=== PATIENT | female | born 1960 | race African-American/Black ===

== ENCOUNTER → 2016-11-17 | Outpatient (CLI) | payer BC ==
[~2016-11-17] VITALS: Ht 167.6 cm; Wt 143.0 kg
[~2016-11-17] MED LIST: CHLORHEXIDINE GLUCONATE 2 % 1 PACK (2 CLOTHS) TOPICAL PRN; DO NOT ADM ANY ANTICOAGULANT DRUGS PRN; ENALAPRILAT 1.25 MG/ML VIAL IV PUSH ONE; FLUMAZENIL 0.5 MG/5 ML VIAL IV PRN; INSULIN HUMAN REGULAR 1,000 UNITS/10 ML VIAL SQ PRN; LACTATED RINGER'S 1000 ML IV PRN; LOSA100T2 PO; LOVA20TA PO; METOPROLOL TARTRATE 25 MG TAB PO PRN; MOBI15TA PO; NALOXONE HCL 0.4 MG/ML AMP IV PRN; ONDANSETRON HCL 4 MG/2 ML VIAL IV PUSH ONE; POVIDONE IODINE 5% (ANTISEPSIS KIT) 4 APPLICATIONS EACH NARE PRN; PROPOFOL 200 MG/20 ML AMP IV ONE; SODIUM CHLORID 0.9% 500 ML IV PRN; hydrALAZINE HCL 20 MG/ML VIAL IV PUSH ONE; hydrALAZINE HCL 20 MG/ML VIAL ONE
[2016-11-17 09:10] VITALS: BP 164/84; PULSE 62; RESP 18; TEMP 98.5; O2SAT 97
--- NOTE | 2016-11-17 10:34 | GIPROC ---
[facility] [address] [facility]. [facility], [address] EGD PROCEDURE REPORT EXAM DATE: 11/17/2016 PATIENT NAME: Naila Starkey MR #: [id number] BIRTHDATE: 1960 ATTENDING: Bob Holguin MD ORDER #: [id number] VETERINARY VIRUS SERUM INSPECTOR: Oleg Nichols and Dionna Garcia STATUS: outpatient INDICATIONS: The patient is a 56 yr old female here for an EGD due to Preoperative assessment PROCEDURE PERFORMED: EGD w/ biopsy MEDICATIONS: None and Per Anesthesia. TOPICAL ANESTHETIC: none CONSENT: The patient understands the risks and benefits of the procedure and understands that these risks include, but are not limited to: sedation, allergic reaction, infection, perforation and/or bleeding. Alternative means of evaluation and treatment include, among others: physical exam, x-rays, and/or surgical intervention. The patient elects to proceed with this endoscopic procedure. medical equipment was checked for proper function. Hand hygiene and appropriate measures for infection prevention was taken. After the risks, benefits and alternatives of the procedure were thoroughly explained, Informed consent was verified, confirmed and timeout was successfully executed by the treatment team. The patient was anesthetized with topical anesthesia and the BuyHappyax [id number] endoscope was introduced through the mouth and advanced to the second portion of the duodenum. Mild duodenitis noted. Biopsy of antrum for h. pylori. Retroflexed views revealed no abnormalities The gastroscope was then slowly withdrawn and removed. DUODENUM: Mild duodenal inflammation was found. ADVERSE EVENTS: There were no complications. IMPRESSIONS: 1. Duodenal inflammation was found 2. Retroflexed views revealed no abnormalities RECOMMENDATIONS: Await biopsy results. Biopsy results will not be ready for 7-10 days. If you don't hear from us in two weeks, call our office for biopsy results. PATIENT CONDITION: fair DISPOSITION: Home REPEAT EXAM: NONE Bob Holguin MD eSigned: Bob Holguin MD 11/17/2016 10:34 AM cc:
--- NOTE | 2016-11-17 11:02 | EKG ---
Date Performed: 11/17/2016 Time Performed: 08:44:31 PTAGE: 56 years EKG: SINUS BRADYCARDIA POSSIBLE LEFT VENTRICULAR HYPERTROPHY AND ST-T CHANGE POSSIBLE SEPTAL BEL CARDIAL INFARCTION , OF INDETERMINATE AGE ABNORMAL ECG NO PREVIOUS TRACING DOCTOR: Johann Harrison Interpretating Date/Time 11/17/2016 11:01:57
[2016-11-17 11:25] VITALS: RESP 16; TEMP 97.8; O2SAT 94
[2016-11-17 13:35] VITALS: PULSE 65
[2016-11-17 15:50] VITALS: BP 189/97
== END ==
LOC: HEND 07:53
PROVIDERS: ATTEND Surgery
DX: K29.80 Duodenitis without bleeding (principal); R94.31 Abnormal electrocardiogram [ECG] [EKG]; E66.01 Morbid (severe) obesity due to excess calories
CPT/HCPCS: 00740; 43239; 88305; 88312; 93005; J0360; J2405

== ENCOUNTER 2017-10-18 05:46 | Inpatient (IN) ==
[2017-10-18] MEDS ORDERED: ceFAZolin 2 GM IV; once IV.SIG PRN (06:06)
[2017-10-18] MEDS ORDERED: SCOPALAMINE PATCH TOPICAL PRN (06:14)
[2017-10-18] MEDS ORDERED: Chlorhexidine Gluconate 2% 1 Pack (2 Cloths) TOPICAL SCH (06:15)
[2017-10-18] MEDS ORDERED: Metoprolol Tartrate 25 MG Tablet PO SCH (06:15)
[2017-10-18] MEDS ORDERED: Dexamethasone Inj 20 MG/5 ML Vial ONE (06:18)
[2017-10-18] MEDS ORDERED: Propofol Inj 500 MG/50 ML Vial ONE ×2 (06:18→07:59)
[2017-10-18] MEDS ORDERED: Dexmedetomidine Inj 200 MCG/2 ML Vial ONE ×2 (06:18→07:59)
[2017-10-18] MEDS ORDERED: Sugammadex Inj 200 MG/2 ML Vial IV.PUSH ONE ×2 (06:20→06:55)
[2017-10-18] MEDS ORDERED: Ketamine Inj 50 MG/5 ML Syringe IV.PUSH ONE (06:22)
[2017-10-18] MEDS ORDERED: Sodium Chlor 0.9% Inj 500 ML IV.SIG SCH (07:00)
[2017-10-18] MEDS: Bupivacaine/Epinephrine 0.5% Inj 50 ML Vial ONE ×2 (08:11→12:42)
[2017-10-18] MEDS ORDERED: diphenhydrAMINE HCl 12.5 MG/5 ML Elixir UDC PO PRN (09:46)
[2017-10-18] MEDS ORDERED: Post-op Orders (for Pharmacy) OTHER STA (09:46)
--- NOTE | 2017-10-18 09:46 | P.OP ---
- Preoperative Diagnosis (1) Morbid obesity (2) Morbid obesity with BMI of 50.0-59.9, adult - Postoperative Diagnosis (1) Morbid obesity with BMI of 50.0-59.9, adult Date of procedure: 10/18/17 Procedure: lap sleeve gastrectomy Anesthesia: GETA Surgeon: Bob Holguin MD Parachute Supervisor: Santos Wells Estimated blood loss (mL): 5 Pathology: none sent Operation and Findings: no leak
[2017-10-18] MEDS ORDERED: *Meperidine Inj 25 MG/ML Vial PERIprocedural Use ONLY ONE (09:51)
[2017-10-18] MEDS ORDERED: fentaNYL Citrate Inj 100 MCG/2 ML Ampul ONE (09:56)
[2017-10-18] MEDS ORDERED: *morphine SULFATE 4 MG/ML PERIprocedure ONLY ONE (09:59)
[2017-10-18] MEDS ORDERED: KCL 20 mEq/D5W/NaCl 0.45% Inj 1,000 ML ONE (10:00)
[2017-10-18] MEDS ORDERED: *morphine SULFATE 10 MG/ML PERIprocedure ONLY ONE (11:19)
[2017-10-18] MEDS: KCL 20 mEq/D5W/NaCl 0.45% Inj 1,000 ML IV.CONT SCH ×2 (12:16→17:30)
[2017-10-18] MEDS ORDERED: Succinylcholine Inj 200 MG/10 ML Vial IV.PUSH ONE (16:11)
[2017-10-18] MEDS ORDERED: Lidocaine PF 1% Inj 5 ML Syringe INFILTRATN ONE (16:11)
[2017-10-18] MEDS ORDERED: Ketorolac Inj 30 MG/ML (IVP) Vial IV.PUSH ONE (16:11)
[2017-10-18] MEDS ORDERED: hydrALAZINE HCl Inj 20 MG/ML Vial IV.PUSH ONE (16:11)
[2017-10-18] MEDS: Acetaminophen-HYDROcodone 325/7.5 Liq 15 ML UDC PO PRN (16:40)
[2017-10-18] MEDS: Enoxaparin Inj 40 MG/0.4 ML Syringe SQ SCH (16:43)
--- NOTE | 2017-10-18 19:53 | MP ---
cc: Bob Holguin MD DATE OF OPERATION: 10/18/2017 PREOPERATIVE DIAGNOSES: 1. Morbid obesity, body mass index of 54. 2. Hypertension. 3. Obstructive sleep apnea. 4. Rheumatoid arthritis. 5. Hypercholesterolemia. POSTOPERATIVE DIAGNOSES: 1. Morbid obesity, body mass index of 54. 2. Hypertension. 3. Obstructive sleep apnea. 4. Rheumatoid arthritis. 5. Hypercholesterolemia. PROCEDURE PERFORMED: Laparoscopic sleeve gastrectomy over a 36 ViSiGi bougie. SURGEON: Bob Holguin MD LEARNING SPECIALIST: Santos Reardon MD ANESTHESIA: GETA. IV FLUIDS: See anesthesia sheet. ESTIMATED BLOOD LOSS: 5 mL DRAINS: None: COMPLICATIONS: None. WOUND CLASSIFICATION: Clean/contaminated. SPECIMENS: None. INDICATIONS FOR PROCEDURE: The patient is a 57-year-old female who presents with morbid obesity, BMI 54. The patient with multiple attempts at weight loss without success. Multiple comorbidities. Decision was made for operative intervention, including sleeve gastrectomy. The patient with history of arthritis with routine Mobic usage and history of smoking, recently quit. DETAILS OF PROCEDURE: The patient was taken to the operating suite, placed in the supine position. She was prepped and draped in the usual sterile fashion after induction of general endotracheal anesthesia. Brief timeout was done, stating correct patient, procedure, surgical site. We were all in agreement with this. Attention was first directed to the xiphoid 15 cm distal on the midline; local anesthetic injected. A stab vicki incision was made with an 11 blade. A ViSiGi OptiPort 5 mm view was entered into the abdomen safely. Abdomen insufflated to 15 mmHg pneumoperitoneum. On cursory inspection, no evidence of injury. Several other ports were placed, including a 5 mm left upper quadrant port, followed by a 5 mm left lower quadrant port, a 15 mm right lower quadrant port, and a 5 mm right upper quadrant port. The patient placed in reverse Trendelenburg, airplaned to the right. Radha-Flex retractor was placed and secured with the robot arm. The left lobe of the liver was retracted. The vasculature along the greater curvature of stomach was using Harmonic scalpel for a distance of 5 cm proximal to pylorus and carried down toward the angle of His. The angle of His was taken out bluntly. Posterior ligamentous attachments were also sharply . A 36 ViSiGi bougie was placed to suction. Division of the stomach was done over the MyDream InteractiveiGi for calibration device. This was done 5 cm proximal to the pylorus and carried all the way to the angle of His to remove approximately 80% of the stomach. This was performed using an Endo ANNY stapler, initial firings of black load, followed by green load, followed by gold load. Stapler roots were reinforced with SeamGuard. This was done a distance of 2 cm left at the angle of incisura and staple line and a distance 1 cm from the GE junction staple line. The pylorus then was observed and the staple line observed for instillation of methylene blue 60 mL x2, given via anesthesia with the ViSiGi bougie. No evidence of extravasation of fluid. Next, Evicel was placed after the anterior leaflets were sutured using interrupted 2-0 Vicryl suture x2. Hemostasis was achieved. The stomach was removed from the peritoneal cavity through the 15 mm ports. The fascia was closed over the 15 mm port site with a [id number] 0 Vicryl. Pneumoperitoneum was removed. All ports were removed. The skin incision was closed with 4-0 Monocryl subcuticular sutures, followed by sterile dressing, Mastisol, and Steri-Strips. The patient tolerated the procedure well. There were no intraoperative complications. All lap and instrument counts were correct at the end of procedure. The patient was extubated and taken stable to PACU. MD GERALD Hernandez/angel/sesar , 03:07 PM , 03:19 PM
[2017-10-18] MEDS ORDERED: Morphine Inj 30 MG/30 ML PCA.VIAL PCA PRN (22:44)
[2017-10-18] MEDS ORDERED: Naloxone Inj 0.4 MG/ML Vial IV.PUSH PRN (22:44)
[2017-10-19] MEDS: KCL 20 mEq/D5W/NaCl 0.45% Inj 1,000 ML IV.CONT SCH ×3 (05:17→21:48)
[2017-10-19 07:17] LABS: Baso % (Auto) 0.2 % (0.0-2.0); Hematocrit 40.4 % (35.0-46.0); Hemoglobin 13.2 gm/dL (11.6-15.3); Lymph # (Auto) 2.2 th/mm3 (1.0-4.8); Lymph % (Auto) 19.7 % (9.0-44.0); Mean Corpuscular HGB Conc 32.6 % (32.0-36.0); Mean Corpuscular Hemoglobin 28.1 pg (27.0-34.0); Mean Corpuscular Volume 86.4 fL (80.0-100.0); Mean Platelet Volume 9.8 fL (7.0-11.0); Mono # (Auto) 0.9 th/mm3 (0.0-0.9); Mono % (Auto) 8.3 % (0.0-8.0); Neut # (Auto) 8.1 th/mm3 (1.8-7.7); Neut % (Auto) 71.8 % (16.0-70.0); Platelet Count 188 th/mm3 (150-450); Red Blood Count 4.68 mil/mm3 (4.00-5.30); Red Cell Distribution Width 16.2 % (11.6-17.2); White Blood Count 11.2 th/mm3 (4.0-11.0)
[2017-10-19 07:43] LABS: Calcium 7.7 mg/dL (8.5-10.1); Carbon Dioxide 25.3 meq/L (21.0-32.0); Potassium 3.5 meq/L (3.5-5.1)
--- NOTE | 2017-10-19 11:31 | P.PNGS ---
Subjective Patient reports: feels better (HTN, improved, pain better, tolerating liquids 30cc) Physical Exam Vital signs: Vital Signs 10/18/17 12:00 10/18/17 12:36 10/18/17 16:00 Temperature 97.2 F L 97.5 F L Pulse Rate 65 72 70 Respiratory Rate 16 18 18 Blood Pressure 166/78 H 178/80 H 196/84 H Pulse Oximetry 96 92 L 95 10/18/17 22:00 10/18/17 23:20 10/19/17 00:00 Temperature 97.6 F 97.7 F Pulse Rate 58 L 74 Respiratory Rate 18 18 Blood Pressure 188/79 H 188/79 H Pulse Oximetry 95 96 96 10/19/17 00:21 10/19/17 01:54 10/19/17 05:32 Temperature 98.2 F Pulse Rate 60 63 Respiratory Rate 18 18 18 Blood Pressure 129/56 L 149/68 H Pulse Oximetry 98 10/19/17 08:00 Temperature 98.1 F Pulse Rate 63 Respiratory Rate 16 Blood Pressure Pulse Oximetry 94 L Intake & Output 10/18/17 10/19/17 10/19/17 18:59 06:59 18:59 Intake Total 3040 / 3040 2120 / 2120 100 / 100 Output Total 905 / 905 Balance 2135 / 2135 2120 / 2120 100 / 100 Weight 140.1 kg Intake: IV 2100 / 2100 1400 / 1400 100 / 100 D5W/1/2NS + KCL 20 mEq Inj 1, 1000 / 1000 1000 / 1000 000 ML @ 125 mls/hr IV.CONT . Q8H [facility] Rx#:[id number] Ofirmev Inj 1,000 mg In 100 ml 100 / 100 @ 400 mls/hr IV.SIG TRAINING ADMINISTRATOR PRN Rx#:[id number] LR 1000 mL Inj 1,000 ML @ 30 1000 / 1000 mls/hr IV.SIG .Q24H [facility] Rx#: [id number] Ancef Inj 1,000 MG In NS Inj 200 / 200 100 ML @ 200 mls/hr IV.SIG Q8H [facility] Rx#:[id number] Flagyl 500 MG Inj 100 ML @ 200 200 / 200 100 / 100 mls/hr IV.SIG Q8H [facility] Rx#: [id number] Oral 90 / 90 720 / 720 Anesthesia Amount 700 / 700 Other 150 / 150 Output: Urine 900 / 900 Estimated Blood Loss / Other: # Voids 2 4 - Routine Neck Exam Present: full ROM - Routine Respiratory Exam Present: CTA bilaterally - Routine Cardiovascular Exam Present: RRR, S1, S2 - Routine Abdominal Exam Present: soft (incisional tenderness) Assessment and Plan - Plan POD 1Lap vertical sleeve gastrectomy PLAN Increase to 60cc/30min transition to po meds dvt ppx oob ambulate d/c later if bp remains stable
[2017-10-19] MEDS: Enoxaparin Inj 40 MG/0.4 ML Syringe SQ SCH (14:43)
[2017-10-19] MEDS ORDERED: hydrALAZINE 25 MG Tablet PO ONE (17:18)
[2017-10-19] MEDS ORDERED: hydrALAZINE 25 MG Tablet PO PRN (17:19)
--- NOTE | 2017-10-19 17:20 | P.CON ---
History of Present Illness Service: [facility] Consult date: 10/19/17 Requesting Physician: Bob Holguin Reason for Consult: Elevated BP Primary Care Provider: Miller Falk Family Provider: Miller Falk Chief Complaint: Sleeve gastrec History of Present Illness: Patient is a 57-year-old female with primary medical history of morbid obesity, HTN, HLD who came in for an elective active lap sleeve gastrectomy by Dr. Bob Holguin. Postop patient has elevated BP. Hospitalist consulted for assistance in management. Patient seen and examined today. Reports she is doing well. States that pain is well controlled. States she had a history of high blood pressure and hyperlipidemia were and she takes medications at home which includes Norvasc, losartan, lovastatin. Patient states that she has not taken this medication today prior to surgical intervention. Complains of headache, mild nausea, no vomiting. Denies SOB/ dyspnea. Denies chest pain, palpitations , dizziness. Denies fevers, chills. Denies dysuria. Review of Systems All other systems reviewed negative except as stated in HPI PMFSH - History History Provided By: Patient - Medical History Medical History: Medical History (Last Updated 10/19/17 @ 17:13 by GUY Bolden) History of hysterectomy (Acute) Fibroids Tubal Anxiety Astigmatism of eye Back pain Constipation High cholesterol Hypertension Joint pain Osteoporosis Wears glasses - Surgical History Surgical History: Surgical History (Last Reviewed 10/18/17 @ 06:41 by Janet Greenfield) History of esophagogastroduodenoscopy (EGD) - Family History Family History: Family History (Last Updated 10/19/17 @ 17:13 by GUY Bolden) Mother Breast cancer - Tobacco History Second Hand Smoke Exposure: Yes Tobacco Use In Past 30 Days: Yes Smoking Status: Former smoker Smoking End Date: 3 weeks ago - Alcohol History How Often Do You Have a Drink Containing Alcohol: Monthly or less - Substance Use History Substance History: No History of Abuse Medications and Allergies Active Medications: Active Medications Hydrocodone Bitart/Acetaminophen (Hycet 325/7.5 Mg Liq) 10 ml PO Q6H PRN PRN Reason: PAIN SCALE 1 TO 5 Last Admin: 10/18/17 16:40 Dose: 10 ml Chlorhexidine Gluconate (Chlorhexidine 2% Cloth) 3 pack TOPICAL CHECKER IN [facility] Stop: 10/21/17 06:02 Last Admin: 10/18/17 06:15 Dose: 3 pack Diphenhydramine HCl (Benadryl Inj) 25 mg IV.PUSH Q6H PRN PRN Reason: ITCHING Diphenhydramine HCl (Benadryl Liq) 25 mg PO Q6H PRN PRN Reason: ITCHING Enalaprilat (Vasotec Inj) 2.5 mg IV.PUSH Q6H PRN PRN Reason: BP > 160 Last Admin: 10/19/17 14:39 Dose: 2.5 mg Enoxaparin Sodium (Lovenox Inj) 40 mg SQ Q24H [facility] Last Admin: 10/19/17 14:43 Dose: 40 mg Lactated Ringer's (Lr 1000 Ml Inj) 1,000 mls @ 30 mls/hr IV.SIG .Q24H [facility] Stop: 10/21/17 06:02 Last Admin: 10/19/17 05:29 Dose: Not Given Sodium Chloride (Ns Inj) 500 mls @ 30 mls/hr IV.SIG .Q10H [facility] Stop: 10/21/17 06:02 Potassium Chloride/Dextrose/Sod Cl (D5w/1/2ns + Kcl 20 Meq Inj) 1,000 mls @ 125 mls/hr IV.CONT .Q8H [facility] Last Admin: 10/19/17 16:07 Dose: 125 mls/hr Morphine Sulfate (Morphine Inj) 30 mg in 30 mls @ 0 mls/hr HAND FILER BALANCE WHEEL UNSCH PRN PRN Reason: per HAND FILER BALANCE WHEEL parameters Last Admin: 10/18/17 23:20 Dose: 0 mls/hr Metoclopramide HCl (Reglan Inj) 10 mg IV.PUSH Q6H PRN; Protocol PRN Reason: NAUSEA OR VOMITING Metoprolol Tartrate (Lopressor) 25 mg PO CHECKER IN [facility] Stop: 10/21/17 06:02 Last Admin: 10/18/17 07:30 Dose: Not Given Naloxone HCl (Narcan Inj) 0.4 mg IV.PUSH PRN PRN PRN Reason: Resp rate < 10 Scopalamine Patch 0 each TOPICAL CHECKER IN PRN PRN Reason: PRE-OP IN OR HOLDING Ondansetron HCl (Zofran Inj) 4 mg IV.PUSH Q6H PRN PRN Reason: NAUSEA OR VOMITING Pantoprazole Sodium (Protonix) 40 mg PO DAILY [facility] Last Admin: 10/19/17 08:26 Dose: 40 mg Povidone Iodine (Betadine 5% Antisepsis Kit) 1 applicatio EACH NARE CHECKER IN [facility] Stop: 10/21/17 06:02 Last Admin: 10/18/17 06:35 Dose: 1 applicatio Sodium Chloride (Ns Flush) 2 ml IV.FLUSH BID [facility] Last Admin: 10/19/17 08:27 Dose: Not Given Sodium Chloride (Ns Flush) 2 ml IV.FLUSH PRN PRN PRN Reason: FLUSH AFTER USING IV ACCESS Last Admin: 10/19/17 14:40 Dose: 2 ml Allergies Allergy/AdvReac Type Severity Reaction Status Date / Time No Known Allergies Allergy Verified 10/18/17 06:30 Home Medications Medication Instructions Recorded Confirmed Type amlodipine [Norvasc] 5 mg PO DAILY 10/16/17 10/18/17 History losartan 25 mg PO DAILY 10/16/17 10/18/17 History lovastatin 10 mg PO DAILY 10/16/17 10/18/17 History meloxicam [Mobic] 7.5 mg PO DAILY 10/16/17 10/18/17 History Physical Exam Vital signs: Vital Signs 10/18/17 22:00 10/18/17 23:20 10/19/17 00:00 Temperature 97.6 F 97.7 F Pulse Rate 58 L 74 Respiratory Rate 18 18 Blood Pressure 188/79 H 188/79 H Pulse Oximetry 95 96 96 10/19/17 00:21 10/19/17 01:54 10/19/17 05:32 Temperature 98.2 F Pulse Rate 60 63 Respiratory Rate 18 18 18 Blood Pressure 129/56 L 149/68 H Pulse Oximetry 98 10/19/17 08:00 10/19/17 12:00 10/19/17 14:39 Temperature 98.1 F 97.9 F Pulse Rate 63 55 L Respiratory Rate 16 18 Blood Pressure 196/83 H 197/80 H Pulse Oximetry 94 L 94 L Intake & Output 10/18/17 10/19/17 10/19/17 18:59 06:59 18:59 Intake Total 3040 / 3040 0 / 0 1100 / 1100 Output Total 905 / 905 Balance 2134 / 2135 2120 / 2120 1100 / 1100 Weight 140.1 kg Intake: IV 2100 / 2100 1400 / 1400 1100 / 1100 D5W/1/2NS + KCL 20 mEq Inj 1, 1000 / 1000 1000 / 1000 1000 / 1000 000 ML @ 125 mls/hr IV.CONT . Q8H [facility] Rx#:[id number] Ofirmev Inj 1,000 mg In 100 ml 100 / 100 @ 400 mls/hr IV.SIG CHECKER IN PRN Rx#:[id number] LR 1000 mL Inj 1,000 ML @ 30 1000 / 1000 mls/hr IV.SIG .Q24H [facility] Rx#: [id number] Ancef Inj 1,000 MG In NS Inj 200 / 200 100 ML @ 200 mls/hr IV.SIG Q8H [facility] Rx#:[id number] Flagyl 500 MG Inj 100 ML @ 200 200 / 200 100 / 100 mls/hr IV.SIG Q8H [facility] Rx#: [id number] Oral 90 / 90 720 / 720 Anesthesia Amount 700 / 700 Other 150 / 150 Output: Urine 900 / 900 Estimated Blood Loss 5 / 5 Other: # Voids 2 4 Narrative: GENERAL: This is a morbidly obese, well-developed patient, in no apparent distress. SKIN: Warm and dry. HEENT: Normocephalic. Pupils equal round and reactive. Nose without bleeding. Airway patent. NECK: Trachea midline. CARDIOVASCULAR: Regular rate and rhythm without murmurs, gallops, or rubs. RESPIRATORY: Clear to auscultation. Breath sounds equal bilaterally. No wheezes , rales, or rhonchi. GASTROINTESTINAL: Abdomen soft, non-tender, nondistended. Bowel Sounds hypoactive. Laparoscopic incision site with Steri-Strips soiled, dry and intact. MUSCULOSKELETAL: Extremities without clubbing, cyanosis, or edema. NEUROLOGICAL: Awake and alert. Oriented to time, place, person. No focal neuro deficit. Moves all extremities. Normal speech. Assessment and Plan - Assessment (1) Morbid obesity Code(s): E66.01 - Morbid (severe) obesity due to excess calories Status: Acute (2) HTN (hypertension) Code(s): I10 - Essential (primary) hypertension Status: Acute - Plan Patient is a 57-year-old female with primary medical history of morbid obesity, HTN, HLD who came in for an elective active lap sleeve gastrectomy by Dr. Bob Holguin. Morbid Obesity -Status post lap sleeve gastrectomy -Followed by Dr. Holguin -Pain management with bowel regimen Hypertension, uncontrolled HLD -Did not take her blood pressure medication this morning -Restart home medication Norvasc, losartan, lovastatin -We will add hydralazine 1 dose, and as needed -Monitor BP Trend Acute kidney injury, -unknown if with chronic kidney disease secondary to hypertensive nephropathy -Monitor renal indicis. Avoid nephrotoxins. -IV fluids for gentle hydration. DVT prop per surgery Thank you for this consultation. We will follow patient with you. Code Status: Full Code Discussed Condition With: Patient, nursing Discharge Planning: Discharge disposition by surgery team
[2017-10-19] MEDS: amLODIPine 5 MG Tablet PO SCH (17:42)
[2017-10-19] MEDS ORDERED: Acetaminophen 325 MG Tablet PO PRN (19:07)
[2017-10-20] MEDS: KCL 20 mEq/D5W/NaCl 0.45% Inj 1,000 ML IV.CONT SCH ×4 (00:20→17:11)
[2017-10-20 06:57] LABS: Calcium 8.2 mg/dL (8.5-10.1); Potassium 3.7 meq/L (3.5-5.1)
[2017-10-20] MEDS: amLODIPine 5 MG Tablet PO SCH (08:19)
--- NOTE | 2017-10-20 11:56 | P.PNIM ---
Subjective Interval history: Nursing denies any deterioration since last night. Patient says that she had a headache prior to being given clonidine, after being given clonidine her headache resolved. Physical Exam Vital signs: Vital Signs 10/19/17 12:00 10/19/17 14:39 10/19/17 16:00 Temperature 97.9 F 98.1 F Pulse Rate 55 L 59 L Respiratory Rate 18 18 Blood Pressure 196/83 H 197/80 H 212/88 H Pulse Oximetry 94 L 96 10/19/17 20:00 10/20/17 00:00 10/20/17 01:34 Temperature 98.3 F 98.4 F Pulse Rate 52 L 70 64 Respiratory Rate 16 18 Blood Pressure 191/80 H 198/79 H 194/80 H Pulse Oximetry 93 L 93 L 10/20/17 03:15 10/20/17 05:00 10/20/17 08:00 Temperature 97.8 F 98.6 F Pulse Rate 54 L 67 Respiratory Rate 22 18 Blood Pressure 190/84 H 164/68 H 172/74 H Pulse Oximetry 96 98 Intake & Output 10/19/17 10/20/17 10/20/17 18:59 06:59 18:59 Intake Total 1100 / 1100 1000 / 1000 1000 / 1000 Balance 1100 / 1100 1000 / 1000 1000 / 1000 Intake: IV 1100 / 1100 1000 / 1000 1000 / 1000 D5W/1/2NS + KCL 20 mEq Inj 1, 1000 / 1000 1000 / 1000 1000 / 1000 000 ML @ 125 mls/hr IV.CONT . Q8H [facility] Rx#:[id number] Flagyl 500 MG Inj 100 ML @ 200 100 / 100 mls/hr IV.SIG Q8H [facility] Rx#: [id number] Other: # Voids 4 4 # Bowel Movements 0 Narrative: Lying in bed, awake, alert, no acute distress Unlabored breathing, clear lungs bilaterally Heart sounds regular rate and rhythm Results - Labs CBC & Chem 7: 10/19/17 05:55 10/20/17 05:01 Laboratory Results - last 24 hr 10/20/17 05:01 Sodium 142 D Potassium 3.7 Chloride 108 H D Carbon Dioxide 29.0 Anion Gap 5 BUN 17 Creatinine 1.29 H Estimated GFR 52 L Random Glucose 107 H Calcium 8.2 L Assessment and Plan - Assessment (1) Morbid obesity Code(s): E66.01 - Morbid (severe) obesity due to excess calories Status: Acute (2) HTN (hypertension) Code(s): I10 - Essential (primary) hypertension Status: Acute - Plan Patient is a 57-year-old female with primary medical history of morbid obesity, HTN, HLD who came in for an elective active lap sleeve gastrectomy by Dr. Bob Holguin. Morbid Obesity -Status post lap sleeve gastrectomy -Followed by Dr. Holguin -Pain management with bowel regimen Hypertension, uncontrolled HLD -Norvasc, losartan (doubling dose now to 50 mg total daily), lovastatin -adding scheduled clonidine -Monitor BP Trend Acute kidney injury, -improving w/ IVFs DVT prop per surgery
[2017-10-20] MEDS: hydrALAZINE 10 MG Tablet PO SCH ×2 (12:26→17:10)
[2017-10-20] MEDS: Enoxaparin Inj 40 MG/0.4 ML Syringe SQ SCH (14:16)
--- NOTE | 2017-10-20 14:46 | P.PNGS ---
Subjective Interval history: Doing well from a bariatric standpoint Pain and nausea well controlled C/O of headaches Physical Exam Vital signs: Vital Signs 10/19/17 16:00 10/19/17 20:00 10/20/17 00:00 Temperature 98.1 F 98.3 F 98.4 F Pulse Rate 59 L 52 L 70 Respiratory Rate 18 16 18 Blood Pressure 212/88 H 191/80 H 198/79 H Pulse Oximetry 96 93 L 93 L 10/20/17 01:34 10/20/17 03:15 10/20/17 05:00 Temperature 97.8 F Pulse Rate 64 54 L Respiratory Rate 22 Blood Pressure 194/80 H 190/84 H 164/68 H Pulse Oximetry 96 10/20/17 08:00 10/20/17 12:00 Temperature 98.6 F 99 F Pulse Rate 67 66 Respiratory Rate 18 17 Blood Pressure 172/74 H 212/92 H Pulse Oximetry 98 97 Intake & Output 10/19/17 10/20/17 10/20/17 18:59 06:59 18:59 Intake Total 1100 / 1100 1000 / 1000 1000 / 1000 Balance 1100 / 1100 1000 / 1000 1000 / 1000 Intake: IV 1100 / 1100 1000 / 1000 1000 / 1000 D5W/1/2NS + KCL 20 mEq Inj 1, 1000 / 1000 1000 / 1000 1000 / 1000 000 ML @ 125 mls/hr IV.CONT . Q8H [facility] Rx#:[id number] Flagyl 500 MG Inj 100 ML @ 200 100 / 100 mls/hr IV.SIG Q8H [facility] Rx#: [id number] Other: # Voids 4 4 # Bowel Movements 0 - Constitutional no acute distress, morbidly obese - Routine Respiratory Exam Present: CTA bilaterally - Routine Cardiovascular Exam Present: RRR - Routine Abdominal Exam Present: soft, tenderness Comments: Normal post-operative tenderness, surgical incisions CDI Assessment and Plan - Assessment (1) Bariatric surgery status Code(s): Z98.84 - Bariatric surgery status Status: Acute Onset Date: ~ - Plan Pt tolerating PO fluids Losartan and clonidine added for BP control, appreciate input from Medicine Continue with frequent ambulation Code Status: Full Discharge Planning: Depending on hospital course, hopefully tomorrow - Attending Attestation The exam, history, and the medical decision-making described in the above note were completed with the assistance of the mid-level provider. I reviewed and agree with the findings presented. I attest that I had a [id number] encounter with the patient on the same day, and personally performed and documented my assessment and findings in the medical record.
[2017-10-20] MEDS: Acetaminophen-HYDROcodone 325/7.5 Liq 15 ML UDC PO PRN ×2 (17:10→23:15)
[2017-10-21] MEDS: KCL 20 mEq/D5W/NaCl 0.45% Inj 1,000 ML IV.CONT SCH (02:30)
[2017-10-21] MEDS: Acetaminophen-HYDROcodone 325/7.5 Liq 15 ML UDC PO PRN (05:06)
[2017-10-21] MEDS: amLODIPine 5 MG Tablet PO SCH (09:07)
[2017-10-21] MEDS: hydrALAZINE 10 MG Tablet PO SCH (09:07)
[2017-10-21 10:45] LABS: Calcium 8.7 mg/dL (8.5-10.1); Carbon Dioxide 29.3 meq/L (21.0-32.0)
--- NOTE | 2017-10-21 10:53 | P.PNIM ---
Subjective Interval history: Nursing denies any deterioration since last night apart from the patient complaining of some mild dizziness upon standing up. Patient otherwise denies any headaches. Says she feels fine. Blood pressures seem to be still on the elevated side, no sign of hypotension. Physical Exam Vital signs: Vital Signs 10/20/17 12:00 10/20/17 20:00 10/21/17 00:00 Temperature 99 F 98.1 F 98.4 F Pulse Rate 66 49 L 55 L Respiratory Rate 17 16 16 Blood Pressure 212/92 H 180/76 H 147/68 H Pulse Oximetry 97 96 96 10/21/17 08:00 Temperature 98.3 F Pulse Rate 44 L Respiratory Rate 18 Blood Pressure 167/71 H Pulse Oximetry 98 Intake & Output 10/20/17 10/21/17 10/21/17 18:59 06:59 18:59 Intake Total 1000 / 1000 480 / 480 Balance 1000 / 1000 480 / 480 Weight 140.1 kg Intake: IV 1000 / 1000 D5W/1/2NS + KCL 20 mEq Inj 1, 1000 / 1000 000 ML @ 125 mls/hr IV.CONT . Q8H YAMILETH Rx#:[id number] Oral 480 / 480 Other: # Voids 3 7 Narrative: Heart sounds regular rate rhythm, no murmurs Unlabored breathing Sitting up in chair Results - Labs CBC & Chem 7: 10/19/17 05:55 10/21/17 10:20 Laboratory Results - last 24 hr 10/21/17 10:20 Sodium 142 Potassium 4.0 Chloride 107 Carbon Dioxide 29.3 Anion Gap 6 BUN 19 H Creatinine 1.42 H Estimated GFR 46 L Random Glucose 92 Calcium 8.7 Assessment and Plan - Assessment (1) Morbid obesity Code(s): E66.01 - Morbid (severe) obesity due to excess calories Status: Acute (2) HTN (hypertension) Code(s): I10 - Essential (primary) hypertension Status: Acute - Plan Patient is a 57-year-old female with primary medical history of morbid obesity, HTN, HLD who came in for an elective active lap sleeve gastrectomy by Dr. Bob Holguin. Morbid Obesity -Status post lap sleeve gastrectomy -Followed by Dr. Holguin -Pain management with bowel regimen Hypertension, uncontrolled HLD -We will double Norvasc dose from 5 to 10 mg daily starting today, continue losartan 25 mg twice daily, adding on HCTZ as this is actually home medication of the patient, and will increase hydralazine from 10 mg 3 times daily to 25 mg 3 times daily. Will stop clonidine given the substantial bradycardia seen with the patient even when she is awake and sitting up (40s-50s). acute on chronic KD - likely at baseline today, etiology suspected uncontrolled chronic HTN -Improved, can stop IV fluids DVT prop per surgery Would recommend discharging the patient on 10 mg of Norvasc daily, losartan/ hctz per the patient's home regimen, and hydralazine 25 mg 3 times daily. He is to follow-up closely with her PCP within 1 week to check her blood pressures. Not a safe candidate for beta-blockers nor clonidine (discontinuing clonidine) given bradycardia. Does not need to be inpatient for HTN unless symptomatic from it.
[2017-10-21] MEDS ORDERED: amLODIPine 5 MG Tablet PO ONE (12:00)
[2017-10-21] MEDS ORDERED: hydrALAZINE 10 MG Tablet PO SCH (12:00)
[2017-10-21] MEDS: Enoxaparin Inj 40 MG/0.4 ML Syringe SQ SCH (13:54)
[2017-10-21] MEDS ORDERED: clonazePAM 1 MG Tablet PO SCH (14:00)
--- NOTE | 2017-10-21 14:02 | P.PNGS ---
Subjective Patient reports: feels better (bp better controlled, tolerating diet, +flatus) Physical Exam Vital signs: Vital Signs 10/20/17 20:00 10/21/17 00:00 10/21/17 08:00 Temperature 98.1 F 98.4 F 98.3 F Pulse Rate 49 L 55 L 44 L Respiratory Rate 16 16 18 Blood Pressure 180/76 H 147/68 H 167/71 H Pulse Oximetry 96 96 98 10/21/17 12:00 Temperature 97.9 F Pulse Rate 51 L Respiratory Rate 18 Blood Pressure 130/60 Pulse Oximetry 98 Intake & Output 10/20/17 10/21/17 10/21/17 18:59 06:59 18:59 Intake Total 1000 / 1000 480 / 480 Balance 1000 / 1000 480 / 480 Weight 140.1 kg Intake: IV 1000 / 1000 D5W/1/2NS + KCL 20 mEq Inj 1, 1000 / 1000 000 ML @ 125 mls/hr IV.CONT . Q8H YAMILETH Rx#:[id number] Oral 480 / 480 Other: # Voids 3 7 - Routine Abdominal Exam Present: soft (incisional tenderness, c/d/i) Assessment and Plan - Plan POD 3Lap vertical sleeve gastrectomy PLAN diet liquid 60cc/30min po meds dvt ppx oob ambulate d/c today appreciate medicine input
[2017-10-21] MEDS ORDERED: hydrALAZINE 25 MG Tablet PO SCH (18:00)
[2017-10-22] MEDS ORDERED: amLODIPine 10 MG Tablet PO SCH (09:00)
--- NOTE | 2017-10-26 11:18 | P.DS ---
Date of admission: 10/18/17 05:46 Primary care physician: Miller Falk Attending physician on discharge: Bob Holguin Brief History from admission: Ms. Starkey is a 57yo F who presented for elective laparoscopic vertical sleeve gastrectomy. The procedure was performed due to morbid obesity with associated complications of uncontrolled hypertension, hyperlipidemia, and obstructive sleep apnea DS: Diagnosis - Discharge Diagnosis (1) Bariatric surgery status Status: Acute DS: Medications - Discharge Medications Prescriptions: amlodipine [Norvasc] 10 mg PO DAILY #30 tab hydralazine 25 mg PO TID #90 tab losartan-hydrochlorothiazide [Hyzaar] 1 tab PO DAILY #30 tab DS: Summary Hospital Course: The procedure was performed without incident and the patient endured the normal post operative course. She did experience hypertensive urgency post-operatively and hospitalist consult was obtained. She was discharged home with new medication regimen and instructed to follow up with her primary care physician - Time Spent with Patient Total time spent providing and/or coordinating discharge services: Less than 30 minutes - Quality: VTE Deep Vein Thrombosis/Pulmonary Embolism Present on Admission: No Exam Narrative: GENERAL: This is a well-nourished, obese patient, in no apparent distress. GASTROINTESTINAL: Abdomen soft, non-tender, nondistended. MUSCULOSKELETAL: Extremities without clubbing, cyanosis, or edema. NEURO: Alert & Oriented x4 to person, place, time, situation. Moves all ext x4 - Additional findings Additional findings: This patient was examined by Dr. Holguin and this note is written on his behalf Results Procedures completed during hospitalization: laparoscopic vertical sleeve gastrectomy - Impressions Laboratory Tests 10/19/17 10/19/17 10/20/17 05:55 05:55 05:01 WBC 11.2 H RBC 4.68 Hgb 13.2 Hct 40.4 MCV 86.4 MCH 28.1 MCHC 32.6 RDW 16.2 Plt Count 188 MPV 9.8 Neut % (Auto) 71.8 H Lymph % (Auto) 19.7 [place] % (Auto) 8.3 H Eos % (Auto) 0.0 Baso % (Auto) 0.2 Neut # (Auto) 8.1 H Lymph # (Auto) 2.2 [place] # (Auto) 0.9 Eos # (Auto) 0.0 Baso # (Auto) 0.0 WBC Differential . Differential Comment Auto diff final Sodium 131 L 142 D Potassium 3.5 3.7 Chloride 97 L 108 H D Carbon Dioxide 25.3 29.0 Anion Gap 9 5 BUN 27 H 17 Creatinine 1.61 H 1.29 H Estimated GFR 40 L 52 L Random Glucose 121 H 107 H Calcium 7.7 L 8.2 L Magnesium 2.0 10/21/17 10:20 WBC RBC Hgb Hct MCV MCH MCHC RDW Plt Count MPV Neut % (Auto) Lymph % (Auto) [place] % (Auto) Eos % (Auto) Baso % (Auto) Neut # (Auto) Lymph # (Auto) [place] # (Auto) Eos # (Auto) Baso # (Auto) WBC Differential Differential Comment Sodium 142 Potassium 4.0 Chloride 107 Carbon Dioxide 29.3 Anion Gap 6 BUN 19 H Creatinine 1.42 H Estimated GFR 46 L Random Glucose 92 Calcium 8.7 Magnesium Discharge Plan - Discharge Disposition Patient Disposition: Discharge Home - Discharge Order Discharge Orders: Discharge Order (Routine); Ordered 10/21/17 Ordered By: Bob Holguin - Physicians Team Primary Care Provider: Miller Falk Attending Provider: Bob Holguin Other Providers: Surgeons,[facility] ; Wayne Muller MD - Rxs /Orders / Referrals /Forms Prescriptions: New amlodipine [Norvasc] 10 mg Tablet 10 mg PO DAILY Qty: 30 RF: 0 hydralazine 25 mg Tablet 25 mg PO TID Qty: 90 RF: 0 losartan-hydrochlorothiazide [Hyzaar] 50-12.5 mg Tablet 1 tab PO DAILY Qty: 30 RF: 0 Continue lovastatin 10 mg Tablet 10 mg PO DAILY Discontinued amlodipine [Norvasc] 5 mg Tablet 5 mg PO DAILY losartan 25 mg Tablet 25 mg PO DAILY meloxicam [Mobic] 7.5 mg Tablet 7.5 mg PO DAILY Referrals: Miller Falk M.D. [Primary Care Provider] - See Instructions (CALL FOR APPOINTMENT) Bob Holguin MD [Physician] - 10/25/17 (no heavy lifting >15 lbs ok to shower tomorrow, no bath tub keep incisions clean and dry) - Discharge Instructions Patient Printed Instructions: Nutrition after Bariatric Surgery (DC), Steristrips (ED), Laparoscopic Sleeve Gastrectomy (DC)
== END 2017-10-21 16:12 | disposition home or self-care (01) ==
LOC: HSDI 05:46 → N07 12:33
PROVIDERS: ADMIT Surgery; ATTEND Surgery